=== PATIENT | female | born 1995 ===

== ENCOUNTER 2021-06-14 12:15 | Inpatient (IN) | payer OTHER ==
[~2021-06-14] VITALS: Ht 154.9 cm; Wt 2.7 kg
[2021-06-30] MEDS ORDERED: PRENATAL CAPLE1 EAC1 PO (11:22)
== END 2021-07-03 13:17 | disposition home or self-care (01) | DRG 788 ==
LOC: LDR 06-30 07:34 → OB/GYN 06-30 07:34 → O/R 06-30 07:34 → OB/GYN 06-30 15:31
PROVIDERS: ADMIT Obstetrics & Gynecology; ATTEND Obstetrics & Gynecology
PROC: 4A1HXFZ Monitoring of Products of Conception, Cardiac Rhythm, External Approach (ICD-10-PCS; 2021-06-30)
PROC: 10D00Z1 Extraction of Products of Conception, Low, Open Approach (ICD-10-PCS; principal; 2021-06-30 14:15)
DX: O62.1 Secondary uterine inertia (principal); O42.02 Full-term premature rupture of membranes, onset of labor within 24 hours of rupture; Z37.0 Single live birth; Z3A.39 39 weeks gestation of pregnancy

== ENCOUNTER 2021-06-30 03:42 | Outpatient (CLI) | payer OTHER ==
[2021-06-30] MEDS ORDERED: PRENATAL CAPLE1 EAC1 PO (11:22)
== END 2021-06-30 07:34 | disposition still patient (30) ==
LOC: NST 03:42
PROVIDERS: ATTEND Obstetrics & Gynecology
DX: Z34.83 Encounter for supervision of other normal pregnancy, third trimester (principal)